=== PATIENT | male | born 2000 | race Hispanic/Latino ===

== ENCOUNTER 2019-11-27 20:25 | Emergency (ER) | payer SELFPAY ==
[2019-11-27] MEDS ORDERED: IBUPROFEN 400 MG TABLET ONE (20:44)
== END 2019-11-27 21:59 | disposition home or self-care (01) ==
LOC: EDH 20:25
DX: I88.9 Nonspecific lymphadenitis, unspecified (principal); J02.9 Acute pharyngitis, unspecified; Z90.49 Acquired absence of other specified parts of digestive tract
CPT/HCPCS: 87880